=== PATIENT | male | born 1995 | race African-American/Black ===

== ENCOUNTER → 2020-03-14 | Outpatient (CLI) | payer MEDICAID ==
[2020-03-14 13:33] LABS: Hepatitis A Ab IgM Negative
[2020-03-14 13:34] LABS: Hepatitis B Core IgM Negative; Hepatitis B Surface Antigen Negative (Negative); Hepatitis C Antibody Negative (Negative)
[2020-03-15 05:06] LABS: RPR Non Reactive (Non Reactive)
== END | disposition home or self-care (01) ==
LOC: LAB 10:19
PROVIDERS: ATTEND Nurse Practitioner Family
DX: Z11.3 Encounter for screening for infections with a predominantly sexual mode of transmission (principal); Z82.5 Family history of asthma and other chronic lower respiratory diseases
CPT/HCPCS: 36415; 80074; 86592; 86703; 87086